=== PATIENT | male | born 1960 | race Hispanic/Latino ===

== ENCOUNTER 2020-02-07 18:06 | Emergency (ER) | payer BC, OTHER ==
[2020-02-07 18:17] VITALS: BP 142/84
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
== END 2020-02-07 21:20 | disposition home or self-care (01) ==
LOC: ED 18:06
DX: S09.90XA Unspecified injury of head, initial encounter (principal); Z98.890 Other specified postprocedural states; Z79.899 Other long term (current) drug therapy; V49.49XA Driver injured in collision with other motor vehicles in traffic accident, initial encounter; Y93.89 Activity, other specified; Y92.89 Other specified places as the place of occurrence of the external cause; Y99.8 Other external cause status
CPT/HCPCS: 70450